=== PATIENT | male | born 1970 | race Caucasian/White ===

== ENCOUNTER 2021-07-23 11:21 | Day surgery (SDC) | payer MEDICARE ==
[2021-07-17 12:31] VITALS: BMI 29.9
[~2021-07-23 11:21] MED LIST: DEXAMETHASONE SOD PHOSPHATE 4 MG/ML 1 ML VIAL IV ONE; HYDROmorphone 0.5 MG/0.5 ML SYRINGE IVP PRN; LIDOCAINE 1% (10MG/ML) FOR IV START INTRADERMA PRN; ONDANSETRON 4 MG/2 ML VIAL IVP PRN
[2021-07-23] MEDS: LACTATED RINGERS 1,000 ML IV SCH ×2 (12:35→12:40)
[2021-07-23] MEDS ORDERED: ONDANSETRON 4 MG/2 ML VIAL IVP ONE (12:40)
[2021-07-23] MEDS ORDERED: DEXAMETHASONE SOD PHOS (MDV) 100 MG/10 ML VIAL IVP ONE (12:40)
[2021-07-23] MEDS ORDERED: MIDAZOLAM 2 MG/2 ML VIAL IVP ONE (12:43)
--- NOTE | 2021-07-23 13:00 | P.ANPRN ---
Procedure Note - Anesthesia - Nerve Block Performed Right Adductor Canal Single Time Out Performed: Yes (1242) Date of Procedure: 07/23/21 Procedure Start Time: 12:45 Procedure Stop Time: 12:55 Location of Patient: PreOp Indication: Acute Post-Operative Pain, Analgesia, Dx/Pain Location, Requested by Surgeon Sedation Type: Sedate with meaningful contact maintained Preparation: Sterile Prep, Sterile Dressing Position: Supine Catheter: None Needle Types: Pajunk Needle Gauge: 20, 21 Ultrasound used to visualize needle placement: Yes Ultrasound used to observe medication spread: Yes Injectate: 0.5% Ropivacaine (see comment for volume) (10 mL of 0.5% ropivacaine, and 10 mL of preservative free 0.9% normal saline) Blood Aspirated: No Pain Paresthesia on Injection Noted: No Resistance on Injection: Normal Image Stored and Saved: Yes Events: Uneventful and Well Tolerated
--- NOTE | 2021-07-23 13:02 | P.ANPRN ---
Procedure Note - Anesthesia - Nerve Block Performed Right Popliteal Single Time Out Performed: Yes (1242) Date of Procedure: 07/23/21 Procedure Start Time: 12:45 Procedure Stop Time: 12:55 Location of Patient: PreOp Indication: Acute Post-Operative Pain, Analgesia, Dx/Pain Location, Requested by Surgeon Sedation Type: Sedate with meaningful contact maintained Preparation: Sterile Prep, Sterile Dressing Position: Left Lateral Catheter: None Needle Types: Pajunk Needle Gauge: 20 Ultrasound used to visualize needle placement: Yes Ultrasound used to observe medication spread: Yes Injectate: 0.5% Ropivacaine (see comment for volume) (13 mL of 0.5% ropivacaine, 10 mL of 0.9% normal saline preservative-free, and 4 MG of dexamethasone) Blood Aspirated: No Pain Paresthesia on Injection Noted: No Resistance on Injection: Normal Image Stored and Saved: Yes Events: Uneventful and Well Tolerated
[2021-07-23] MEDS ORDERED: LIDOCAINE 1% INJ 10MG/ML (20 ML MDV) ONE (13:11)
[2021-07-23] MEDS ORDERED: fentaNYL (PF) 50 MCG/ML 2 ML AMP ONE (13:11)
[2021-07-23] MEDS ORDERED: PROPOFOL 10 MG/ML 20 ML VIAL IV ONE (13:11)
[2021-07-23] MEDS ORDERED: HYDROmorphone (PF) 1 MG/ML ONE (13:11)
[2021-07-23 16:10] VITALS: TEMP 97.4
--- NOTE | 2021-07-23 16:32 | P.OP ---
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 Patient is a minimal ambulator with extreme weakness on the right side secondary to multiple sclerosis. Both myself and the patient thought ankle arthrodesis would be the most appropriate procedure given the weaknesses of the right lower extremity and his propensity for injury Description of Procedure: Prior to the patient being brought to the operating room anesthesia administered a nerve block on the right lower extremity. Then the patient was brought into the operating room and placed on table supine position. Timeout was taken to confirm correct patient identifiers, correct site of surgery, and correct procedure. When all staff in the room agreed of the timeout, the patient was induced and placed under general anesthesia. A well-padded tourniquet was placed on the right thigh and a bump underneath the right hip to internally rotate the right leg. The right leg was prepped and draped usual manner. The right leg was exsanguinated the Esmarch bandage the knee slightly flexed and the tourniquet inflated 250 mmHg. Tension was directed over the anterior ankle where an incision was made between the talus anterior and the extensor hallucis longus tendon. The incision was deepened down to the saphenous tissue careful to identify, avoid, and retract any neurovascular structures and cauterize any bleeding vessels. The retinaculum was incised between the 2 tendons and then blunt dissection was carried down to the ankle joint capsule. The soft tissues were retracted linear incision was made to the anterior aspect ankle joint capsule. Subperiosteal dissection was performed to expose the entirety of the ankle joint. Utilizing a combination of bone curettes and osteotomes the articular cartilage and subchondral bone were removed from the articular surface of the talus and tibia. 2.5 mm drill bit was used to fenestrate both surfaces. Small osteotome was also used to fish scale the surfaces. 5 mL of demineralized live bone matrix was placed between the arthrodesis segments. The nail was then loaded onto the insertion jig and then pretensioned utilizing described techniques. With the ankle held in neutral inversion and eversion and 90 to the leg the guidewire was inserted the plantar surface the foot in the tibial midline both on AP and lateral views. The pin was advanced to the calcaneus across the talus and into the tibia. Fluoroscopic views show that the pin was centralized both on AP and lateral views. Stab incision was then made in the skin at the entry point of the guidewire. A step drill holes were then used to create initial canals to the calcaneus talus and tibia. And then reamers were inserted sequentially from 10 mm to 12 mm until appropriate sizing was encountered. The guidewires were removed and then a 10 mm nail was inserted on the jig place a the drill hole and advanced to the foot and leg. Fluoroscopy was used to confirm the proper depth. The bar to place the posterior screw was then attached to the jig and then the drill guides were placed through the bar over the calcaneus to identify the area of the a drill hole small stab incision was made to the skin the drill hole to the calcaneus going through the spring and into the anterior process was done and then the screw was inserted and then advanced to proper depth. Then the lateral view under fluoroscopy show that it was fully through the spring and the head was buried the calcaneus the distal end was shortened calcaneocuboid joint. The arm was removed and drill guides placed on the lateral aspect for the transverse calcaneal screw. A small stab incision was made to the skin and then the drill advanced to the drill guide into the sustentaculum giuliana. Then the fully threaded cortical screw was inserted through the spring to lock it in place onto the sustentaculum giuliana. The distal end of the guide was then impacted to create compression at the arthrodesis site. The drill guide was then placed in the proximal portion of the jig at the tibial level. Small stab incision was made through the skin with the drill guide contacted the tibia. The drill hole for the tibial screw was then made through the tibia and again going through the spring. Another cortical screw was inserted to lock the superior portion of the spring in place. Fluoroscopic imaging confirmed proper placement of all hardware and there appeared to be good compression at the ankle arthrodesis site. Fluoroscopy did not show any movement of the ankle or the intramedullary spring. And direct visualization of the surgical site show that there was complete compression of the ankle joint. The jig was then released from the nail and removed. The wounds were then flushed thoroughly with antibiotic saline. The ankle joint capsules closed with 3-0 Vicryl. The excess retinaculum was closed with 3-0 Vicryl. The anterior incision was closed subcutaneously with 4-0 Monocryl. All incisions were then closed with ranjit. An Arthrex jumpstart dressing was applied over all incisions and then a bulky dry dressings applied to the right foot and ankle. The tourniquet was released and capillary refill return to all digits on the right foot. The patient was then placed in a well-padded, well molded plaster posterior mold/sugar tong splint. Anesthesia was reversed and the patient was taken recovery vital signs stable.
[2021-07-23] MEDS ORDERED: LACTATED RINGERS 1,000 ML IV ONE (17:00)
[2021-07-23 18:18] VITALS: BP 126/82; PULSE 102; RESP 20
--- NOTE | 2021-07-24 08:10 | FL ---
Fluoroscopy History: RIGHT ANKLE ARTHRODESIS 3 min [address] Aguirre. RT ankle hardware placement.
== END 2021-07-23 18:26 | disposition home or self-care (01) ==
LOC: OR 11:21
PROVIDERS: ATTEND Podiatrist
DX: S82.841B Displaced bimalleolar fracture of right lower leg, initial encounter for open fracture type I or II (principal)
CPT/HCPCS: 27870; 64447; 64445; 76942; 73600; C1713; J2250; J0690; J2405; J2001; J3010; J1170; J1100; J2704